=== PATIENT | male | born 1960 | race Caucasian/White ===

== ENCOUNTER 2017-01-12 16:00 | Inpatient (IN) | payer BC ==
[2017-01-23] MEDS ORDERED: MECLIZINE 25 MG TABLET PO ONE (06:00)
[2017-01-23] MEDS ORDERED: VANCOMYCIN HCL 1,000 MG in 0.9 % SODIUM CHLORIDE 250ML 250 ML IVPB ONE (06:00)
[2017-01-23] MEDS ORDERED: CELECOXIB 100 MG CAPSULE PO ONE (06:00)
[2017-01-23] MEDS ORDERED: FAMOTIDINE 20MG TABLET PO ONE (06:00)
[2017-01-23] MEDS ORDERED: METOCLOPRAMIDE 10 MG TABLET PO ONE (06:00)
[2017-01-23] MEDS ORDERED: ACETAMINOPHEN 1,000 MG/100 ML BTL IV ONE (06:00)
[2017-01-23] MEDS ORDERED: CEFAZOLIN 2 Gram 2 GM/50 ML BAG IVPB ONE (06:00)
[2017-01-23 08:04] LABS: ABO GROUP O; ANTIBODY SCREEN NEGATIVE (NEGATIVE); RH TYPE POSITIVE
[2017-01-23] MEDS ORDERED: MAGNESIUM HYDROXIDE 30 ML UDC PO PRN (11:03)
[2017-01-23] MEDS ORDERED: 0.9 % SODIUM CHLORIDE 500ML 500 ML IV ONE (11:03)
[2017-01-23] MEDS ORDERED: ZOLPIDEM TARTRATE 5 MG TABLET PO PRN (11:03)
[2017-01-23] MEDS ORDERED: AL HYDROX/MAG HYDROX 30ML UD PO PRN (11:03)
[2017-01-23] MEDS ORDERED: ACETAMINOPHEN 325 MG TAB PO PRN (11:03)
[2017-01-23] MEDS ORDERED: KETOROLAC 30 MG/ML VIAL IVP PRN ×2 (11:03)
[2017-01-23] MEDS ORDERED: HYDROMORPHONE HCL 1 MG/ML CPJ IM PRN ×2 (11:03)
[2017-01-23] MEDS ORDERED: NALOXONE 0.4 MG/1 ML VIAL IVP PRN (11:03)
[2017-01-23] MEDS ORDERED: BISACODYL 10 MG SUPP RC PRN (11:03)
[2017-01-23] MEDS ORDERED: DIPHENHYDRAMINE HCL 25 MG CAPSULE PO PRN (11:03)
[2017-01-23] MEDS ORDERED: ONDANSETRON HCL IV 4 MG/2 ML VIAL IVP PRN (11:03)
[2017-01-23] MEDS ORDERED: ACETAMINOPHEN W/ CODEINE 300MG/60MG TABLET PO PRN ×2 (11:03)
[2017-01-23] MEDS ORDERED: TRANEXAMIC ACID 1,000 MG/10 ML ML IV ONE (13:19)
[2017-01-23] MEDS ORDERED: HYDROMORPHONE HCL 2 MG/ML VIAL IV ONE ×3 (13:19→14:00)
[2017-01-23] MEDS ORDERED: KETOROLAC 30 MG/ML VIAL IVP ONE ×2 (13:19→14:00)
[2017-01-23] MEDS ORDERED: BUPIVACAINE 0.5% W/EPI MPF 30 ML VIAL IVP ONE (13:19)
[2017-01-23] MEDS: HYDROMORPHONE HCL 2 MG/ML VIAL IM PRN ×2 (13:20→19:38)
[2017-01-23] MEDS ORDERED: PROPOFOL 10 MG/ML VIAL IV ONE (14:00)
[2017-01-23] MEDS ORDERED: SUFENTANIL CITRATE 50 MCG/ML AMPUL IV ONE (14:00)
[2017-01-23] MEDS ORDERED: LIDOCAINE 2% MDV (20MG/ML) 20ML VIAL IV ONE (14:00)
[2017-01-23] MEDS ORDERED: MIDAZOLAM HCL 2MG/2ML VIAL IV ONE (14:00)
[2017-01-23] MEDS ORDERED: ROCURONIUM BROMIDE 50MG/5ML VIAL IV ONE (14:00)
[2017-01-23] MEDS ORDERED: SUGAMMADEX SODIUM 200 MG/2 ML VIAL IV ONE (14:00)
[2017-01-23] MEDS ORDERED: SEVOFLURANE 250 ML INH ONE (14:00)
[2017-01-23] MEDS: POTASSIUM CHLORIDE/D5-0.9%NACL 20 MEQ/1,000 ML BAG IV SCH ×2 (15:10→22:38)
[2017-01-23] MEDS ORDERED: RIVAROXABAN 10 MG TABLET PO SCH (16:00)
[2017-01-23] MEDS ORDERED: PATIENT OWN MED: FUROSEMIDE 40 MG PO SCH (16:00)
--- NOTE | 2017-01-23 16:50 | Rehab Evaluation ---
Patient Information - Patient Information Diagnosis: L TKA Ordered Treatment: PT Evaluate and Treat Status: Initial Evaluation Surgery: Yes Date of Surgery: 01/23/17 Past Medical/Surgical Hx: PAST MEDICAL/SURGICAL HISTORY Past Surgical History left rotator cuff repair appy left index finger gastric sleeve c scope heart cath PMH - Respiratory Hx Respiratory Disorders Yes Hx Sleep Apnea Yes Hx of CPAP Yes PMH - Cardiovascular Hx Cardiovascular Disorders Yes Hx Abnormal EKG Yes Hx Cardiac Catheterization Yes Hx Congestive Heart Failure Yes Hx Edema Yes Hx Hypertension Yes: on meds good control Hx Irregular Heartbeat Yes: A-fib Exercise Tolerance Good PMH - Neuro Hx Neurological Disorders No PMH - GI Hx Gastrointestinal Disorders Yes Hx Diverticulitis Yes PMH - Hx Genitourinary Disorders No PMH - Endocrine Hx Endocrine Disorders No PMH - Musculoskeletal Hx Musculoskeletal Disorders Yes Hx Arthritis Yes: left knee PMH - Psych Hx Psychiatric Problems No PMH - Hematology/Oncology Hx Hematology/Oncology No Disorders Premorbid Status: Detail Social History: Detail (The patient lives with spouse in a one story home with no stairs. The patient has a regular tub/shower combination and a high rise toilet. The patient was vended a standard walker.) Precautions: Other (WBAT on the L LE.) - Time With Patient Total Time Spent With Patient (Min): 30 Subjective Information - Subjective Information Per Patient (The patient had complaints of level 2 pain in L knee.) Objective Data - Pain Pain Present: Yes - Mental Status Patient Orientation: Oriented x3 - Visual Perception Appears within normal limits for therapeutic activities - ROM Not within normal limits (The patient's L knee AROM was flexion 85 degrees, extension 0 degrees.) - Strength/Tone Not within normal limits (The patient's R LE strength was generally 4+ to 5/5. The patient's L LE strength was not formaly assessed secondary to S/P surgery however the patient's strength is functional.) - Bed Mobility Independent (The patient was independent with supine to and from sit transfer and scooting up in bed.) - Transfers Independent (The patient was indpendent with sit to and from stand transfer.) - Balance Balance Sitting: Good Balance Standing: Good - Gait Detail (The patient ambulated with standard walker a distance of 80 feet x 1 WBAT on the L LE with supervision for safety and occasional verbal cues to not place walker too far forward.) Therapy Assessment - Therapy Assessment Detail (The patient was independent with all mobility and required verbal cues for safety with ambulation. The patient completed exercises with occasional verbal cues for proper technique. Anticipate the patient will do well with mobility and complete inpatient PT on 01/24/17.) Patient Education - Patient Education Teaching Topic: Equipment Use, Exercise/Activity (The patient completed the following exercises: seated heel slides, quad sets, hamstring sets, gluteal sets , ankle pumps, SLR all x 5 reps.) Response: Return Demonstration Teaching Method: Handout Teaching Recipient: Patient Barriers To Learning: None Problem List - Problem List Physical Therapy Problem List: Detail (1) Decreased L knee AROM as to be expected following surgery. 2) Verbal cues for safety with ambulation.) Goals - Goals Physical Therapy Goals: 1) Independent with ambulation on levels WBAT on the L LE with assistive device. 2) Supervision with ambulation on stairs or at least able to recall proper technique for stair climbing( the patient has no stairs at home.). 3) Independent with HEP. Prognosis - Prognosis Good Plan - Plan Physical Therapy Plan: PT 2 times a day for gait training, transfer training and instruction in HEP until all inpatient goals are met.
[2017-01-23] MEDS: CEFAZOLIN 2 Gram 2 GM/50 ML BAG IVPB SCH ×2 (17:13→23:46)
[2017-01-23] MEDS: PRAMIPEXOLE 0.5 MG PO SCH ×2 (17:17→22:44)
[2017-01-23] MEDS: HYDROCODONE/APAP 10/325 TABLET PO PRN ×2 (17:29→22:49)
[2017-01-23] MEDS ORDERED: WARFARIN 5 MG PO SCH (22:00)
[2017-01-23] MEDS ORDERED: WARFARIN 2 MG PO SCH (22:00)
[2017-01-23] MEDS ORDERED: PATIENT OWN MED: TRAZODONE 100 MG PO SCH (22:00)
[2017-01-23] MEDS: DOCUSATE SODIUM 100 MG CAPSULE PO SCH (22:43)
[2017-01-24] MEDS: HYDROCODONE/APAP 10/325 TABLET PO PRN ×4 (04:35→18:17)
[2017-01-24] MEDS: POTASSIUM CHLORIDE/D5-0.9%NACL 20 MEQ/1,000 ML BAG IV SCH (04:48)
[2017-01-24] MEDS: PATIENT OWN MED: PO SCH ×2 (05:55→13:45)
[2017-01-24 06:40] LABS: HEMATOCRIT 38.1 % (42.0-52.0); HEMOGLOBIN 12.3 gm/dl (14.0-18.0)
[2017-01-24 06:50] LABS: INR 2.13; PROTHROMBIN TIME (PATIENT) 24.1 SECONDS (9.5-12.1)
[2017-01-24 06:55] LABS: ANION GAP 3.5 (7-16); BLOOD UREA NITROGEN 17 mg/dL (9-20); CARBON DIOXIDE 27.5 mmol/L (22-30); EST GLOMERULAR FILTRATION RATE > 60 ml/min; GLUCOSE,RANDOM 111 mg/dL (70-110)
[2017-01-24] MEDS: CEFAZOLIN 2 Gram 2 GM/50 ML BAG IVPB SCH (08:18)
[2017-01-24] MEDS: DOCUSATE SODIUM 100 MG CAPSULE PO SCH (09:05)
[2017-01-24] MEDS: PRAMIPEXOLE 0.5 MG PO SCH ×3 (09:07→15:23)
[2017-01-24] MEDS ORDERED: 0.9 % SODIUM CHLORIDE 10ML SYR IVP SCH (09:15)
[2017-01-24] MEDS ORDERED: FERROUS SULFATE 325 MG TAB PO SCH (10:00)
[2017-01-24] MEDS ORDERED: BENAZEPRIL 20 MG PO SCH (10:00)
[2017-01-24] MEDS ORDERED: METOPROLOL SUCCINATE 200 MG PO SCH (10:00)
[2017-01-24] MEDS ORDERED: SPIRONOLACTONE 25 MG PO SCH (10:00)
[2017-01-24] MEDS ORDERED: DIGOXIN 0.25 MG PO SCH (10:00)
--- NOTE | 2017-01-24 10:55 | Physical Therapy Tx Note ---
Physical Therapy Tx Note - Treatment Note Tolerated: Good (Patient had a very painful night but pain under control now and seems much better. Willing to walk in [place] and even try steps to make sure safe with walker and rail.) Total Time Spent With Patient: 30 Physical Therapy Tx Note: Detail (Patient seen in room and sleeping since had a rough night. Current pain med helping greatly and patient willing to get up and walk. Patient required very little help with left leg supine to sit, assist was to swing leg over to edge of bed, but able to let it down himself. Sit to stand with CGA only, ambulated to bathroom with standard walker, WBAT and stood to use commode independently then washed hands and ambulated in [place] with SBA and standard walker to stairs, went down steps correctly without cues using folded walker and rail, pivoted then back up stairs with good technique. Ambulated to end of douglas then back to room, about 100+ feet. Sat up in chair with call light and tray table close. Patient to call nurse if wants to get back in bed. Worked on knee exercises seated with about 60-70 degrees of knee bend.) Physical Therapy Problem List: Detail (1) Decreased L knee AROM as to be expected following surgery. 2) Verbal cues for safety with ambulation.) Physical Therapy Goals: 1) Independent with ambulation on levels WBAT on the L LE with assistive device. 2) Supervision with ambulation on stairs or at least able to recall proper technique for stair climbing( the patient has no stairs at home.). 3) Independent with HEP. Prognosis: Good (Patient doing very well and may be seen this afternoon if wants to walk more but has passed skills required to safely go home.) Physical Therapy Plan: PT 2 times a day for gait training, transfer training and instruction in HEP until all inpatient goals are met.
--- NOTE | 2017-01-24 11:23 | Rehab Evaluation ---
Patient Information - Patient Information Diagnosis: L TKA Ordered Treatment: OT Evaluate and Treat Status: Initial Evaluation Surgery: Yes Date of Surgery: 01/23/17 Past Medical/Surgical Hx: PAST MEDICAL/SURGICAL HISTORY Past Surgical History left rotator cuff repair appy left index finger gastric sleeve c scope heart cath PMH - Respiratory Hx Respiratory Disorders Yes Hx Sleep Apnea Yes Hx of CPAP Yes PMH - Cardiovascular Hx Cardiovascular Disorders Yes Hx Abnormal EKG Yes Hx Cardiac Catheterization Yes Hx Congestive Heart Failure Yes Hx Edema Yes Hx Hypertension Yes: on meds good control Hx Irregular Heartbeat Yes: A-fib Exercise Tolerance Good PMH - Neuro Hx Neurological Disorders No PMH - GI Hx Gastrointestinal Disorders Yes Hx Diverticulitis Yes PMH - Hx Genitourinary Disorders No PMH - Endocrine Hx Endocrine Disorders No PMH - Musculoskeletal Hx Musculoskeletal Disorders Yes Hx Arthritis Yes: left knee PMH - Psych Hx Psychiatric Problems No PMH - Hematology/Oncology Hx Hematology/Oncology No Disorders Premorbid Status: Detail (Independent with all ADLs BLOW MOLDER) Social History: Detail (The patient lives with spouse in a two story home but lives on first floor only (bedroom and bathroom on first floor). The patient has a regular tub/shower combination and a high rise toilet. The patient was vended a standard walker by PT. Patient's spouse works during the day but will come home at lunch to assist patient. Patient also has a daughter and son-in- law that will be checking on him throughout the day while spouse is at work.) Precautions: Other (WBAT on the L LE.) - Time With Patient Total Time Spent With Patient (Min): 10 Treatment Procedures: Detail (OT evaluation low) Subjective Information - Subjective Information Per Patient Objective Data - Pain Pain Present: Yes Pain Intensity: 6 (L knee) Pain Scale Used: Numeric (1 - 10) - Mental Status Patient Orientation: Oriented x3 - Visual Perception Appears within normal limits for therapeutic activities - ROM Within normal limits (BUE's) - Strength/Tone Within normal limits (BUE's) - Coordination Appears within normal limits for therapeutic activities - ADL's/IADL's Detail (Patient toileting independently. He is able to don/doff socks without assist. Discussed ADL equipment available if he needs any help once home. Discussed technique for drsg and patient verbalized understanding. Feels he does not need any quipment at this time and if so, then family will help. Patient plans to sponge bath for first few days following return home.) Therapy Assessment - Therapy Assessment Detail (Patient verbalized understanding of ADL equipment available and dressing technique. Feels he does not need any equipment and will have a lot of support from family to assist as needed.) Patient Education - Patient Education Teaching Topic: Equipment Use, Other (dressing techniques) Response: Verbalize Understanding Teaching Method: Discussion Teaching Recipient: Patient Barriers To Learning: None Problem List - Problem List Physical Therapy Problem List: Detail (1) Decreased L knee AROM as to be expected following surgery. 2) Verbal cues for safety with ambulation.) Goals - Goals Physical Therapy Goals: 1) Independent with ambulation on levels WBAT on the L LE with assistive device. 2) Supervision with ambulation on stairs or at least able to recall proper technique for stair climbing( the patient has no stairs at home.). 3) Independent with HEP. Prognosis - Prognosis Good Plan - Plan Physical Therapy Plan: PT 2 times a day for gait training, transfer training and instruction in HEP until all inpatient goals are met. Occupational Therapy Plan: No further OT needed at this time.
--- NOTE | 2017-01-24 14:12 | Physical Therapy Tx Note ---
Physical Therapy Tx Note - Treatment Note Physical Therapy Tx Note: Detail (The patient refused pm treatment due to L knee pain. The patient passed all PT skills in the am including independence with transfers, bed mobility, ambulation on levels and stairs. The patient was also independent with HEP.) Physical Therapy Problem List: Detail (1) Decreased L knee AROM as to be expected following surgery. 2) Verbal cues for safety with ambulation.) Physical Therapy Goals: 1) Independent with ambulation on levels WBAT on the L LE with assistive device. 2) Supervision with ambulation on stairs or at least able to recall proper technique for stair climbing( the patient has no stairs at home.). 3) Independent with HEP. Physical Therapy Plan: The patient completed all PT skills this am and is discharged from inpatient PT.
--- NOTE | 2017-01-25 15:21 | Operative Note ---
DATE OF SURGERY: 01/23/2017 PREOPERATIVE DIAGNOSIS: End-stage arthrosis of the left knee. POSTOPERATIVE DIAGNOSIS: End-stage arthrosis of the left knee. OPERATION: Cemented left total knee arthroplasty using Fagan [employer] Nephew Ester II components, with a size 7 Oxinium femur, a size 7 stem tibia baseplate, a 9 mm left tibial insert highly cross-linked, and a 35 mm all plastic patella. Surgeon: Jhonathan Menezes MD Anesthesia: General. PREPARATION: Chloraprep. INDIVIDUAL CONSIDERATIONS: None. KITCHEN HELP HANDYMAN: Mrs. Davis. PROCEDURE: The patient was taken to the operating room, placed supine on the operating room table. He had successful induction with general anesthetic. His left lower extremity was prepped and draped in the usual fashion. The patient had a midline approach to the knee. Limb was elevated, tourniquet was inflated to 300 mmHg. Sharp dissection carried down through skin and subcutaneous tissues. All veins were coagulated with the Bovie. A medial arthrotomy was performed. Patella was everted and it was flexed. Patient had exposed bone in the medial and patellofemoral compartments. Fat pad was resected, capsule was released to the medial proximal tibia, ACL was sacrificed, and provisional anterior meniscectomies were performed. The initial femoral fire pilot hole was then made freehand. The intramedullary femoral cutting jig was placed. It was cut in 7.0 degrees of valgus and adjusted for rotation, secured with pins for a 10 mm resection. The initial transverse cut was then made. Skin guide was placed for anterior and posterior fire pilot holes. It was found that a size 7 would be appropriate. The anterior and posterior cuts followed by chamfer cuts were made. Osteophytes removed. A size 7 trial was placed and found to fit well. The tibia was brought forward. Remainder of the meniscal remnants removed with a Bovie. The extraarticular tibial cutting jig was placed. It was cut in neutral with 3-degree AP slope. It was set for a 9 mm resection off the high level side, secured with pins. When cutting the tibia, care was taken to preserve the PCL insertion on the tibia. Medial osteophytes removed and found a size 7 trial fit appropriate. It was adjusted for location and secured with pins. When cutting the tibia, care was taken to preserve the PCL insertion of the tibia. It was found that a size 7 would be appropriate. A size 7 trial was placed with a 9 mm femoral trial. There was excellent motion and stability. Ligamentous balance was thought to be normal. The femoral fire pilot holes were impacted and the tri-flange tibial stamp was impacted and these trial components removed. The patient had thick patella and roughly 9 mm of bone was removed with the oscillating saw. A 35 patella fit easily and the 3 fire pilot holes were then drilled. The knee was then thoroughly irrigated out to remove any visible or palpable debris with Betadine and saline. The tourniquet was let down briefly to get bleeders posteriorly and placed back up again. Bony surfaces were then dried. A size 7 stem tibia baseplate was cemented into place followed by impaction of the 9 mm highly cross-linked left tibial insert followed by cementing in the size 7 Oxinium femur followed by cementing in a 35 mm patella. Implant surfaces were compressed, excess cement was removed and after the cement had set, there was excellent motion and stability. Ligamentous balance, rotation, alignment, and patellofemoral tracking were normal and a was required. Tourniquet let down. Hemostasis was obtained with a Bovie. Final irrigation with Betadine and saline. The skin and soft tissues were then infiltrated with 0.5% Marcaine with epinephrine. The capsule was then closed with a running #2 quill, subcu was closed with running 0 quill, skin was closed with running 2-0 quill. Then 40 mL of saline mixed with 1 gram of tranexamic acid was injected into the knee. The patient did receive 1 g of tranexamic acid IV prior. Sterile bulky compressive Aquacel type dressing was applied. The patient tolerated the procedure well. Needle and sponge counts were correct. Estimated blood loss was minimal. He was taken back to recovery in good condition. There were no complications. CC: Dr. Kaye MARLOW
--- NOTE | 2017-01-25 15:39 | Discharge Summary ---
DATE OF ADMISSION: 01/23/2017. DATE OF DISCHARGE: 01/24/2017. DATE OF SURGERY: 01/23/2017. PRIMARY DIAGNOSIS: End-stage arthrosis, left knee. SECONDARY DIAGNOSES: 1. Congestive heart failure, stable. 2. Atrial fibrillation, stable. 3. Hypertension, stable. OPERATIONS AND PROCEDURES: Cemented left total knee arthroplasty. HISTORY OF PRESENT ILLNESS: The patient is a delightful 56-year-old man who presents with end-stage arthrosis of his left knee. He was admitted after a left total knee arthroplasty. Postoperatively, he did well. HOSPITAL COURSE: His hospital course was unremarkable. I plan to discharge him home to the care of his family. Home PT, visiting nurse has been arranged. He will be given [place] for pain. He takes Coumadin chronically, so he will continue with that, and that will cover him for DVT prophylaxis. He will follow up in my office in 4 weeks. His discharge condition was good. These instructions were given directly to him. CC: Dr. Patricio MARLOW
== END 2017-01-24 19:00 | disposition home or self-care (01) | DRG 470 ==
LOC: MEDSURG 01-23 06:55
PROVIDERS: ADMIT Orthopaedic Surgery; ATTEND Orthopaedic Surgery
PROC: 0SRD0J9 Replacement of Left Knee Joint with Synthetic Substitute, Cemented, Open Approach (ICD-10-PCS; principal; 2017-01-23 09:00)
DX: M17.12 Unilateral primary osteoarthritis, left knee (principal); I42.8 Other cardiomyopathies; I48.0 Paroxysmal atrial fibrillation; Z79.01 Long term (current) use of anticoagulants; I10 Essential (primary) hypertension; I50.9 Heart failure, unspecified
CPT/HCPCS: 80048; 85014; 85018; 85610; 86850; 86900; 86901; 94760; 97110; 97116; 97165; J1170; J1885; J3480; J3490; J7050

== ENCOUNTER 2018-10-15 08:43 | Day surgery (SDC) | payer BC, OTHER ==
[~2018-10-15 08:43] MED LIST: CEFAZOLIN 2 Gram 2 GM/50 ML BAG IVPB ONE; CELECOXIB 100 MG CAPSULE PO ONE; FAMOTIDINE 20MG TABLET PO ONE; MECLIZINE 25 MG TABLET PO ONE; METOCLOPRAMIDE 10 MG TABLET PO ONE; VANCOMYCIN HCL 1,000 MG in DEXTROSE 5 % IN WATER 250 ML IVPB ONE
[2018-10-15] MEDS ORDERED: SEVOFLURANE 250 ML INH ONE (08:44)
[2018-10-15] MEDS ORDERED: BUPIVACAINE 0.5% W/EPI MPF 30 ML VIAL IVP ONE (08:44)
[2018-10-15] MEDS ORDERED: TRANEXAMIC ACID 1,000 MG/10 ML ML IV ONE (08:44)
[2018-10-15] MEDS ORDERED: DEXAMETHASONE 4 MG/ML 1ML VIAL IVP ONE ×2 (08:44)
[2018-10-15] MEDS ORDERED: ROPIVACAINE HCL (NAROPIN) /PF 5MG/ML 20ML VIAL IV ONE (08:44)
[2018-10-15] MEDS ORDERED: ONDANSETRON HCL IV 4 MG/2 ML VIAL IVP ONE (08:44)
[2018-10-15] MEDS ORDERED: PROPOFOL 10 MG/ML VIAL IV ONE (08:44)
[2018-10-15] MEDS ORDERED: LIDOCAINE 2% MDV (20MG/ML) 20ML VIAL IV ONE (08:44)
[2018-10-15] MEDS ORDERED: FENTANYL PF 100MCG/2ML VIAL IV ONE (08:44)
[2018-10-15] MEDS ORDERED: MIDAZOLAM HCL 2MG/2ML VIAL IV ONE (08:44)
[2018-10-15] MEDS ORDERED: HYDROMORPHONE HCL 2 MG/ML VIAL IV ONE (08:44)
[2018-10-15] MEDS ORDERED: SUFENTANIL CITRATE 50 MCG/ML AMPUL IV ONE (08:44)
[2018-10-15 09:11] LABS: INR 3.3; PROTHROMBIN TIME (PATIENT) 32.1 SECONDS (9.5-12.1)
[2018-10-15 09:59] LABS: ABO GROUP O; ANTIBODY SCREEN NEGATIVE (NEGATIVE); RH TYPE POSITIVE
[2018-10-15] MEDS ORDERED: BISACODYL 10 MG SUPP RC PRN (13:26)
[2018-10-15] MEDS ORDERED: ONDANSETRON HCL IV 4 MG/2 ML VIAL IVP PRN (13:26)
[2018-10-15] MEDS ORDERED: ACETAMINOPHEN W/ CODEINE 300MG/60MG TABLET PO PRN ×2 (13:26)
[2018-10-15] MEDS ORDERED: NALOXONE 0.4 MG/1 ML VIAL IVP PRN (13:26)
[2018-10-15] MEDS ORDERED: HYDROCODONE/APAP 10/325 TABLET PO PRN (13:26)
[2018-10-15] MEDS ORDERED: ZOLPIDEM TARTRATE 5 MG TABLET PO PRN (13:26)
[2018-10-15] MEDS ORDERED: MAGNESIUM HYDROXIDE 30 ML UDC PO PRN (13:26)
[2018-10-15] MEDS ORDERED: AL HYDROX/MAG HYDROX 30ML UD PO PRN (13:26)
[2018-10-15] MEDS ORDERED: TRAMADOL HCL 50 MG TABLET PO PRN (13:26)
[2018-10-15] MEDS ORDERED: ACETAMINOPHEN 325 MG TAB PO PRN (13:26)
[2018-10-15] MEDS ORDERED: HYDROMORPHONE HCL 2 MG/ML VIAL IM PRN (13:26)
[2018-10-15] MEDS ORDERED: DIPHENHYDRAMINE HCL 25 MG CAPSULE PO PRN (13:26)
[2018-10-15] MEDS: POTASSIUM CHLORIDE/D5-0.9%NACL 20 MEQ/1,000 ML BAG IV SCH ×2 (14:34→21:50)
--- NOTE | 2018-10-15 17:22 | Rehab Evaluation ---
Patient Information - Patient Information Diagnosis: OA R knee Ordered Treatment: PT Evaluate and Treat Status: Initial Evaluation Surgery: Yes (R TKA) Date of Surgery: 10/15/18 Past Medical/Surgical Hx: PAST MEDICAL/SURGICAL HISTORY Surgery to Affected Area? No Recent Surgery? Past Surgical History HEART CATH LTKA 01-23-2017 left rotator cuff repair appy left index finger gastric sleeve c scope heart cath PMH - Respiratory Hx Respiratory Disorders Yes Hx Sleep Apnea Yes Hx of CPAP Yes PMH - Cardiovascular Hx Cardiovascular Disorders Yes Hx Abnormal EKG Yes Hx Cardiac Catheterization Yes: WNL 2018 Hx Congestive Heart Failure Yes Hx Edema Yes: LE AT TIMES Hx Hypertension Yes: GOOD CONTROL ON MEDS Hx Irregular Heartbeat Yes: A-fib Exercise Tolerance Poor PMH - Neuro Hx Neurological Disorders No Comment: RLS PMH - GI Hx Gastrointestinal Disorders Yes Hx Diverticulitis Yes Hx Weight Loss/Weight Gain Yes: UP 22 LBS SINCE LAST TOTAL 01-23-2017 PMH - Hx Genitourinary Disorders No PMH - Endocrine Hx Endocrine Disorders No PMH - Musculoskeletal Hx Musculoskeletal Disorders Yes Hx Arthritis Yes: RIGHT KNEE PMH - Psych Hx Psychiatric Problems No PMH - Hematology/Oncology Hx Hematology/Oncology Yes Disorders Hx Clotting Problems Yes: ON COUMADIN Premorbid Status: Detail (The patient was independent with all mobility prior to surgery.) Social History: Detail (The patient lives with spouse in 2 story house with one step at the enterance. The patient will be staying on the first level after surgery. The bathroom is equipped with a tub/shower combination, hand held shower and an elevated toilet. No grab bars are present in the bathroom. The patient has a front wheeled walker and a standard cane.) Precautions: [place], [place], Other (WBAT on the R LE.) - Time With Patient Total Time Spent With Patient (Min): 20 Treatment Procedures: Detail (Initial Evaluation, gait training) Subjective Information - Subjective Information Per Patient (The patient had no complaints of pain. The patient complained of being sleepy.) Objective Data - Mental Status Patient Orientation: Oriented x3 - Visual Perception Appears within normal limits for therapeutic activities - ROM Not within normal limits (The patient's R knee AROM was limited s/p surgery. All other AROM was WNL.) - Strength/Tone Not within normal limits (The patient's R LE strength was not tested s/p surgery , however was functional ie: the patient was able to complete a SLR. The patient 's L LE strength was WFL.) - Bed Mobility Independent (The patient was independent with supine to sit transfer.) - Transfers Independent (The patient was independent with sit to and from stand transfer.) - Balance Balance Sitting: Good Balance Standing: Good - Sensation Intact - Gait Detail (The patient ambulated with front wheeled walker to and from bathroom 8 feet x 2 WBAT on the R LE with supervision of 1 to handle equipment.) Therapy Assessment - Therapy Assessment Detail (The patient was independent with transfers, bed mobility and required supervision for safety with ambulation. Feel the patient will progress well with mobility. Due to stable condition the PT evaluation complexity is rated as low.) Problem List - Problem List Physical Therapy Problem List: Detail (1) Decreased R knee AROM as to be expected s/p surgery. 2) Decreased R LE strength as to be expected s/p surgery.) Goals - Goals Physical Therapy Goals: 1) The patient will ambulate with standard walker a distance of 50 feet plus. 2) The patient will ambulate on stairs using proper technique with supervision for safety. 3) The patient will independent with TKA HEP. Prognosis - Prognosis Good Plan - Plan Physical Therapy Plan: PT 1-2 times a day for gait training on levels and stairs and instruction in HEP.
[2018-10-15] MEDS: CEFAZOLIN 2 Gram 2 GM/50 ML BAG IVPB SCH (18:33)
[2018-10-15] MEDS: HYDROCODONE/APAP 10/325 TABLET PO PRN ×2 (18:35→22:47)
[2018-10-15] MEDS: DOCUSATE SODIUM 100 MG CAPSULE PO SCH (21:48)
[2018-10-15] MEDS ORDERED: TRAZODONE 50 MG TABLET PO SCH (22:00)
[2018-10-15] MEDS ORDERED: PRAMIPEXOLE DI-HCL 0.25 MG TABLET PO SCH (22:00)
[2018-10-15] MEDS ORDERED: WARFARIN 5 MG TAB PO SCH (22:00)
[2018-10-15] MEDS ORDERED: METOPROLOL SUCC 50 MG TABLET PO SCH (22:00)
[2018-10-16] MEDS: CEFAZOLIN 2 Gram 2 GM/50 ML BAG IVPB SCH ×2 (03:31→10:20)
[2018-10-16] MEDS: HYDROCODONE/APAP 10/325 TABLET PO PRN ×4 (03:31→16:06)
[2018-10-16 07:02] LABS: HEMATOCRIT 39.8 % (42.0-52.0); HEMOGLOBIN 12.7 gm/dl (14.0-18.0)
[2018-10-16 07:17] LABS: INR 4.1; PROTHROMBIN TIME (PATIENT) 40.1 SECONDS (9.5-12.1)
[2018-10-16 07:19] LABS: BLOOD UREA NITROGEN 16 mg/dL (8-23); CREATININE 0.9 mg/dL (0.7-1.2); EST GLOMERULAR FILTRATION RATE > 60 mL/min; GLUCOSE,RANDOM 122 mg/dL (74-109)
--- NOTE | 2018-10-16 08:30 | Operative Note ---
DATE OF SURGERY: 10/15/2018 PREOPERATIVE DIAGNOSIS: End-stage arthrosis of the right knee. POSTOPERATIVE DIAGNOSIS: End-stage arthrosis of the right knee. OPERATION: Cemented right total knee arthroplasty using Fagan [employer] Nephew Ester II components with a size 7 Oxinium femur, a size 7 stem tibia baseplate, a 9 mm lipped highly crosslinked tibial insert, and a 35 mm all plastic patella. Staff Surgeon: Jhonathan Menezes MD Anesthesia: General. PREPARATION: Chloraprep. INDIVIDUAL CONSIDERATIONS: None. PROCEDURE: The patient was taken to the operating room, placed supine on the operating room table. He had a successful induction of general anesthetic. The right lower extremity was prepped and draped in the usual fashion. The patient had a midline approach to the knee. The limb was elevated and tourniquet was inflated to 250 mmHg. Sharp dissection carried down through skin and subcutaneous tissue. Small veins were coagulated with a Bovie. A medial arthrotomy was performed. The patella was everted and the knee was flexed. He had exposed bone in both compartments, especially medially. Fat pad was resected, ACL was sacrificed, provisional anterior meniscectomies were performed. The capsule was released from the medial proximal tibia. The initial femoral airline pilot hole was then made freehand. The intramedullary femoral cutting jig was placed. It was cut in 7.0 degrees of valgus and adjusted for rotation and secured with pins for a 10 mm resection. The initial transverse cut was then made. The skin guide was placed in the anterior and posterior airline pilot holes. It was set for a size 7. The anterior and posterior cuts were made. Osteophytes removed, and a size 7 trial was placed and found to fit well. The tibia was brought forward, and the remainder of the meniscal remnants removed with a Bovie. The extraarticular tibial cutting jig was placed. It was cut in neutral with a 3-degree AP slope. Care was taken to adjust for rotation and flexion using the extraarticular alignment guide and bony landmarks. It was set for a 9 mm resection keyed off the high lateral side and secured with pins. When cutting the tibia, care was taken to preserve the PCL insertion on the tibia. Large medial osteophytes were removed, and it was found that a size 7 baseplate would fit appropriately. It was adjusted for rotation and secured with pins. With a 9 mm trial and femoral trial, there was excellent motion and stability, ligamentous balance and rotation alignment were thought to be were normal. The femoral airline pilot holes were impacted, and tibial keel stamp was impacted. These trials components were removed. The patient had a very thick patella and roughly 9 mm of bone was removed freehand. I could easily fit a 35 patella. The 3 airline pilot holes were drilled. Tourniquet was let down briefly to get bleeders posteriorly and then placed back up again. The knee was then thoroughly irrigated out with pulsatile Betadine and saline to remove any visual or palpable debris. Bony surfaces were then dried. A size 7 stem tibia baseplate was cemented into place followed by impaction of the 9 mm lipped tibial insert followed by impaction of the size 7 Oxinium femur followed by cementing in the 35 mm patella. The implant surfaces were compressed, excess cement was removed, and after the cement had set, there was excellent motion and stability, ligamentous balance, rotation alignment, and patellofemoral tracking were normal. No lateral release was required. Again thorough irrigation. Tourniquet was let down. Hemostasis was obtained with a Bovie. The periosteum, skin, and subcu were infiltrated with 30 mL of 0.5% Marcaine with epinephrine. The capsule was then closed with a running #2 quill, subcu was closed in layers with running 0 quill, skin was closed with lawanda. The patient did receive 1 g of tranexamic acid preoperatively. I mixed 1 g of tranexamic acid with 30 mL of saline and placed it into the knee through a sterile 18-gauge needle, and a sterile bulky compressive dressing was applied. The patient tolerated the procedure well. Needle and sponge counts were correct. Estimated blood loss was minimal, and he was taken back to recovery in good condition. There were no complications. ELE
[2018-10-16] MEDS: DOCUSATE SODIUM 100 MG CAPSULE PO SCH (09:07)
[2018-10-16] MEDS ORDERED: SPIRONOLACTONE 25 MG TAB PO SCH (10:00)
[2018-10-16] MEDS ORDERED: BENAZEPRIL 20 MG TABLET PO SCH (10:00)
[2018-10-16] MEDS ORDERED: FUROSEMIDE 40 MG TABLET PO SCH (10:00)
[2018-10-16] MEDS ORDERED: ATORVASTATIN 20 MG TABLET PO SCH (10:00)
[2018-10-16] MEDS ORDERED: FERROUS SULFATE 325 MG TAB PO SCH (10:00)
[2018-10-16] MEDS ORDERED: DILTIAZEM HCL 120 MG ER CAPSULE PO SCH (10:00)
--- NOTE | 2018-10-16 10:37 | Physical Therapy Tx Note ---
Physical Therapy Tx Note - Treatment Note Tolerated: Good Total Time Spent With Patient: 25 Physical Therapy Tx Note: Detail (The patient was sitting on the edge of bed when PT arrived. The patient ambulated independently with standard walker a distance of 50 feet plus, WBAT on the R LE. The patient ambulated on stairs with supervision for safety using one railing and walker with supervision for safety only using proper technique. The patient completed and verbalized good understanding of the following TKA exercises: seated heel slides, ankle pumps, quad sets, hamstring sets, gluteal sets, SLR. The patient has met all inpatient goals and is discharged from inpatient PT.) Physical Therapy Problem List: Detail (1) Decreased R knee AROM as to be expected s/p surgery. 2) Decreased R LE strength as to be expected s/p surgery.) Physical Therapy Goals: 1) The patient will ambulate with standard walker a distance of 50 feet plus.(Goal Met). 2) The patient will ambulate on stairs using proper technique with supervision for safety.(Goal Met). 3) The patient will independent with TKA HEP. (Goal Met) Physical Therapy Plan: The patient has met all inpatient goals. The patient is to receive Home PT.
--- NOTE | 2018-10-16 10:47 | Rehab Evaluation ---
Patient Information - Patient Information Diagnosis: OA R knee Ordered Treatment: OT Evaluate and Treat Status: Initial Evaluation Surgery: Yes (R TKA) Date of Surgery: 10/15/18 Past Medical/Surgical Hx: PAST MEDICAL/SURGICAL HISTORY Surgery to Affected Area? No Recent Surgery? Past Surgical History HEART CATH LTKA 01-23-2017 left rotator cuff repair appy left index finger gastric sleeve c scope heart cath PMH - Respiratory Hx Respiratory Disorders Yes Hx Sleep Apnea Yes Hx of CPAP Yes PMH - Cardiovascular Hx Cardiovascular Disorders Yes Hx Abnormal EKG Yes Hx Cardiac Catheterization Yes: WNL 2018 Hx Congestive Heart Failure Yes Hx Edema Yes: LE AT TIMES Hx Hypertension Yes: GOOD CONTROL ON MEDS Hx Irregular Heartbeat Yes: A-fib Exercise Tolerance Poor PMH - Neuro Hx Neurological Disorders No Comment: RLS PMH - GI Hx Gastrointestinal Disorders Yes Hx Diverticulitis Yes Hx Weight Loss/Weight Gain Yes: UP 22 LBS SINCE LAST TOTAL 01-23-2017 PMH - Hx Genitourinary Disorders No PMH - Endocrine Hx Endocrine Disorders No PMH - Musculoskeletal Hx Musculoskeletal Disorders Yes Hx Arthritis Yes: RIGHT KNEE PMH - Psych Hx Psychiatric Problems No PMH - Hematology/Oncology Hx Hematology/Oncology Yes Disorders Hx Clotting Problems Yes: ON COUMADIN Premorbid Status: Detail (The patient was independent with all mobility, meal prep, laundry and home mgmt tasks prior to surgery.) Social History: Detail (The patient lives with spouse in 2 story house with one step at the entrance. The patient will be staying on the first level after surgery. The bathroom is equipped with a tub/shower combination, hand held shower and an elevated toilet. No grab bars are present in the bathroom. The patient has a front wheeled walker and a standard cane.) Precautions: [place], Fall, Other (WBAT on the R LE.) - Time With Patient Total Time Spent With Patient (Min): 30 Treatment Procedures: Detail (OT eval low complexity) Subjective Information - Subjective Information Per Patient Objective Data - Pain Pain Present: Yes (01/03) - Mental Status Patient Orientation: Oriented x3 - Visual Perception Appears within normal limits for therapeutic activities - ROM Within normal limits (Rob UE AROM WNL) - Strength/Tone Within normal limits (Rob UE strength WNL) - Coordination Appears within normal limits for therapeutic activities - Transfers Independent (Ind with sit to stand from EOB and chair) - Balance Balance Sitting: Good Balance Standing: Good - Sensation Intact - Gait Detail (Pt ambulated in hallway with standard walker and SBA.) - ADL's/IADL's Detail (Pt educated and able to demostrate learning of modified LE dressing techniques including doffing pants, donning boxer shorts, pants and slip on tennis shoes. Reviewed shower and kitchen modifications and safety, pt verbalized understanding.) Therapy Assessment - Therapy Assessment Detail (Pt is Ind with modified LE dressing techniques.) Problem List - Problem List Physical Therapy Problem List: Detail (1) Decreased R knee AROM as to be expected s/p surgery. 2) Decreased R LE strength as to be expected s/p surgery.) Occupational Therapy Problem List: Detail (No current IP OT problems identified. ) Goals - Goals Physical Therapy Goals: 1) The patient will ambulate with standard walker a distance of 50 feet plus.(Goal Met). 2) The patient will ambulate on stairs using proper technique with supervision for safety.(Goal Met). 3) The patient will independent with TKA HEP. (Goal Met) Occupational Therapy Goals: No current IP OT goals identified. Prognosis - Prognosis Good Plan - Plan Physical Therapy Plan: The patient has met all inpatient goals. The patient is to receive Home PT. Occupational Therapy Plan: No further IP OT recommended. Thank you for this referral.
[2018-10-16] MEDS: POTASSIUM CHLORIDE/D5-0.9%NACL 20 MEQ/1,000 ML BAG IV SCH (13:43)
== END 2018-10-16 16:40 | disposition home health service (06) ==
LOC: SUR 08:43 → MEDSURG 14:13 → SUR 10-16 16:40
PROVIDERS: ATTEND Orthopaedic Surgery
DX: M17.11 Unilateral primary osteoarthritis, right knee (principal); I10 Essential (primary) hypertension; E78.00 Pure hypercholesterolemia, unspecified; I48.91 Unspecified atrial fibrillation; Z79.01 Long term (current) use of anticoagulants; I50.9 Heart failure, unspecified; G25.81 Restless legs syndrome; G47.33 Obstructive sleep apnea (adult) (pediatric)
CPT/HCPCS: 27447; 01402; 85018; 85014; 85610; 80048; 86900; 86901; 86850; 94760; J2405; J3370; J3010; J1170; J0690 ×2; J3490 ×3; J2795; 97110; 97530; J7060